=== PATIENT | female | born 1975 | race African-American/Black ===

== ENCOUNTER 2018-01-12 07:52 | Inpatient (IN) | payer OTHER ==
[~2018-01-12] VITALS: Ht 172.7 cm; Wt 60.7 kg
[2018-01-12] MEDS ORDERED: SODIUM CHLORIDE 0.9% 1,000 ML IV ONE ×3 (08:27→12:45)
[2018-01-12] MEDS ORDERED: LORazepam 2MG/ML-1ML VIAL IV ONE (08:30)
[2018-01-12 08:43] LABS: Basophils # (auto) 0 uL; Basophils % (auto) 0.5 % (0.0-2.0); Eosinophils # (auto) 0.1 uL; Eosinophils % (auto) 1.9 % (0.0-7.0); Hematocrit 28.8 % (36.0-46.0); Hemoglobin 8.8 g/dL (12.2-16.2); Lymphocytes # (auto) 0.8 uL; Lymphocytes % (auto) 14.7 % (10.0-50.0); Mean Corpuscular Hemoglobin 22.4 pg (28.0-32.0); Mean Corpuscular Hgb Conc. 30.6 g/dL (32.0-36.0); Monocytes # (auto) 0.2 uL; Monocytes % (auto) 3.9 % (0.0-12.0); Neutrophils # (auto) 4.3 uL; Nucleated Red Blood Cells % 0.1 %; Platelet Count (auto) 339 10^3/uL (140-450); Red Blood Cells 3.95 10^6/uL (4.0-5.20); Red Cell Distribution Width 18.3 % (11.8-14.3); White Blood Cell 5.5 10^3/uL (4.4-10.8)
[2018-01-12 08:48] LABS: BUN/Creatinine Ratio 11.3; Calcium 8.7 mg/dL (8.5-10.1); Potassium 3.7 mmol/L (3.5-5.1)
[2018-01-12 08:52] LABS: Bilirubin, Total 0.3 mg/dL (0.2-1.0); Total Protein 7.9 g/dL (6.4-8.2)
[2018-01-12] MEDS ORDERED: HYDROcodone-ACET 5/325MG TAB PO ONE ×2 (10:15→13:15)
[2018-01-12 11:01] LABS: Urine Bacteria NONE SEEN /hpf (None Seen); Urine Blood Negative /uL (Negative); Urine Mucus FEW (None Seen); Urine Specific Gravity 1.018 (1.001-1.035); Urine WBC <1 /hpf (0 - 5)
[2018-01-12] MEDS ORDERED: PROMETHAZINE HCL 25 MG/ML 1ML IV ONE (14:15)
[2018-01-12] MEDS ORDERED: ONDANSETRON HCL 4 MG/2 ML VIAL IV PRN (14:45)
[2018-01-12] MEDS ORDERED: PANTOPRAZOLE 40 MG/10 ML VIAL IV ONE (14:45)
[2018-01-12] MEDS ORDERED: LORazepam 2MG/ML-1ML VIAL IV PRN ×2 (14:45→19:45)
[2018-01-12] MEDS: PANTOPRAZOLE 40 MG/10 ML VIAL IV SCH (15:15)
[2018-01-12] MEDS: D5W/SOD CHL 0.45%/KCL 20MEQ 1,000 ML IV SCH (15:21)
[2018-01-12] MEDS ORDERED: METH5TAB77 PO (20:03)
[2018-01-12] MEDS ORDERED: METHIMAZOLE 5 MG TAB PO ONE (21:30)
[2018-01-12 21:51] VITALS: BP 103/64
[2018-01-12 22:51] LABS: Alcohol, Urine < 3.0 mg/dL (0-5); Barbiturate Scree,Urine NEGATIVE (NEGATIVE); Opiate Scree,Urine NEGATIVE (NEGATIVE)
[2018-01-12 22:52] LABS: Amphetamine Screen, Urine NEGATIVE (NEGATIVE); Benzodiazephine Screen, Urine NEGATIVE (NEGATIVE); Cocaine Screen, Urine NEGATIVE (NEGATIVE); Phencyclidine Screen, Urine NEGATIVE (NEGATIVE)
[2018-01-12 22:53] LABS: Cannabinoid Screen, Urine POSITIVE (NEGATIVE)
[2018-01-13] MEDS: D5W/SOD CHL 0.45%/KCL 20MEQ 1,000 ML IV SCH ×3 (01:20→15:45)
[2018-01-13 05:10] VITALS: BP 93/45
[2018-01-13 06:19] LABS: Basophils # (auto) 0 uL; Eosinophils # (auto) 0.1 uL; Hemoglobin 8.1 g/dL (12.2-16.2); Monocytes # (auto) 0.3 uL; Neutrophils # (auto) 3.1 uL; Nucleated Red Blood Cells % 0.1 %; White Blood Cell 5.2 10^3/uL (4.4-10.8)
[2018-01-13 06:21] LABS: Basophils % (auto) 0.6 % (0.0-2.0); Eosinophils % (auto) 2.4 % (0.0-7.0); Hematocrit 25.9 % (36.0-46.0); Lymphocytes # (auto) 1.7 uL; Lymphocytes % (auto) 32.5 % (10.0-50.0); Mean Corpuscular Hemoglobin 23.6 pg (28.0-32.0); Mean Corpuscular Hgb Conc. 31.4 g/dL (32.0-36.0); Mean Corpuscular Volume 75.1 fL (80.0-100.0); Monocytes % (auto) 5.7 % (0.0-12.0); Neutrophils % (auto) 58.8 % (37.0-80.0); Platelet Count (auto) 272 10^3/uL (140-450); Red Blood Cells 3.46 10^6/uL (4.0-5.20)
[2018-01-13 06:32] LABS: BUN/Creatinine Ratio 6.3; Calcium 7.4 mg/dL (8.5-10.1); Potassium 3.1 mmol/L (3.5-5.1)
[2018-01-13 08:46] VITALS: BP 139/67
[2018-01-13] MEDS ORDERED: METHIMAZOLE 5 MG TAB PO SCH (10:00)
[2018-01-13] MEDS: PANTOPRAZOLE 40 MG/10 ML VIAL IV SCH (10:00)
[2018-01-13 12:06] VITALS: BP 101/58
[2018-01-13 15:25] VITALS: BP 101/58
[2018-01-13 16:53] VITALS: BP 129/71
== END 2018-01-13 18:27 | disposition home or self-care (01) | DRG 101 ==
LOC: ER 07:52 → OVERFLOW 07:53 → EAST 16:50
PROVIDERS: ADMIT Internal Medicine; ATTEND Internal Medicine
DX: G40.909 Epilepsy, unspecified, not intractable, without status epilepticus (principal); E86.0 Dehydration; D64.9 Anemia, unspecified; E05.90 Thyrotoxicosis, unspecified without thyrotoxic crisis or storm; F12.90 Cannabis use, unspecified, uncomplicated; J45.909 Unspecified asthma, uncomplicated; Z80.3 Family history of malignant neoplasm of breast
CPT/HCPCS: 36415; 70450; 70551; 80048; 80053; 80307; 81001; 81025; 84443; 85025; 93005; 95819; 96361; 96374; C9113; J2405